=== PATIENT | female | born 1985 | race Caucasian/White ===

== ENCOUNTER → 2024-01-18 09:43 | Outpatient (REF) | payer OTHER, SELFPAY | LOC: WDC 09:43 | PROVIDERS: ATTENDING PHYSICIAN Nurse Practitioner Family | DX: N63.10 Unspecified lump in the right breast, unspecified quadrant (principal); N63.11 Unspecified lump in the right breast, upper outer quadrant | CPT/HCPCS: 76642; 77062; 77066 ==

== ENCOUNTER → 2024-08-05 14:37 | Outpatient (REF) | payer OTHER, SELFPAY | LOC: HWRAD 14:37 | PROVIDERS: ATTENDING PHYSICIAN Nurse Practitioner Family; FAMILY PHYSICIAN Family Medicine | DX: N39.498 Other specified urinary incontinence (principal) | CPT/HCPCS: 76857 ==

== ENCOUNTER 2025-02-11 17:43 | Inpatient (IN) | payer OTHER, SELFPAY ==
[2025-02-11] VITALS (11 sets, daily range): BP systolic 100–133; BP diastolic 67–81; BMI 24.9
[2025-02-11 09:54] LABS: % Basophils 0.5 % (0-2); % Eosinophils 2.1 % (0-6); % Immature Granulocytes 0.3 % (0-0.5); % Lymphocytes 25.8 % (20.5-51.1); % Monocytes 10.6 % (1.7-9.3); % Neutrophils 60.7 % (42.2-75.2); Absolute Eosinophils 0.1 10^3/uL (0-0.7); Absolute Lymphocytes 1.6 10^3/uL (1.2-3.4); Absolute Monocytes 0.7 10^3/uL (0.1-0.6); Absolute Neutrophils 3.8 10^3/uL (1.4-6.5); Hematocrit 41.9 % (37.0-47.0); Hemoglobin 14.2 g/dL (12.0-16.0); Mean Corp Hgb Conc. 33.9 g/dL (33.0-37.0); Mean Corpuscular Hgb 29.6 pg (27.0-31.0); Mean Corpuscular Volume 87.3 fL (81.0-99.0); Mean Platelet Volume 11.1 fL (7.4-10.4); Nucleated Red Blood Cells % 0 %; Platelet Count 252 10^3/uL (130-400); Red Cell Dist. Width 12.6 % (11.5-14.5); White Blood Cell Count 6.2 10^3/uL (4.8-10.8)
[2025-02-11 10:08] LABS: HCG, Serum Qualitative Screen Negative
[2025-02-11 10:31] LABS: ALT (SGPT) 18 U/L (0-35); AST (SGOT) 18 U/L (14-36); Albumin 3.7 g/dl (3.5-5.0); Alkaline Phosphatase 42 U/L (38-126); Blood Urea Nitrogen 11 mg/dl (7-17); Calcium 8.9 mg/dl (8.4-10.2); Carbon Dioxide 25 mmol/L (22-30); Chloride 108 mmol/L (98-107); Glucose 47 mg/dl (70-99); Lipase 204 U/L (23-300); Potassium 4.2 mmol/L (3.5-5.1); Sodium 141 mmol/L (135-145); Total Bilirubin 0.3 mg/dl (0.2-1.3); Total Protein 6.1 g/dl (6.3-8.2); eGFR > 60.00
--- NOTE | 2025-02-11 10:37 | EDRN ---
Pt just drank an OJ on way back to room for low glucose.
--- NOTE | 2025-02-11 10:49 | EDRN ---
Dr. Dasilva in room w/ pt at this time.
[2025-02-11 10:54] LABS: Glucose - Point of Care 81 mg/dl (70-99)
--- NOTE | 2025-02-11 11:03 | ED.GENMED ---
History of Present Illness
General
Chief Complaint: Abdominal Pain
Source: patient
Exam Limitations: none
Time Seen by Provider: 02/11/25 10:41
History of Present Illness
History of Present Illness:
40-year-old female started days ago with some diarrhea. Started becoming bloody diarrhea. Some cramps. No nausea or vomiting. No fever. History of same few years ago. No issues between then and now. No recent antibiotics. No unusual travel
history. No one else is ill at home
Past History
Past History
ED Past Medical History: Asthma (with exercise) and Other (Narcolepsy; ovarian cysts; endometriosis, tensionmigraine headaches)
ED Past Surgical History: Gynecological (Ovarian cyst x2 removed.) and Other (NOSE SURGERY; UTERINE SEPTUM REMOVED; TUBAL LIGATION DUE ON 01/27/16)
Patient has exhibited threatening behavior?: No
PSI?: No
Social History
Tobacco: Former smoker
Alcohol: None
Personal:
Living: with family
Employment: Employed
Family History
Family History: Other (No family history of subarachnoid hemorrhage nor cervical aneurysm)
Review of Systems
Review of Systems
All Other Systems: Not applicable
Constitutional: Denies fever or chills
: Reports no symptoms
Phy Exam
Physical Exam
Physical Exam:
GENERAL: Alert and oriented in no apparent distress
EYE: Orbits normal.
NECK: Supple, no significant adenopathy.
ENT: Pharynx without erythema
CARDIAC: Regular rate and rhythm without any obvious murmurs.
LUNGS: Clear breath sounds,normal
ABDOMEN: Soft, mild diffuse nonlocalizing tenderness. No rebound or guarding no mass or hernia
NEUROLOGICAL: Alert and oriented , grossly non-focal
SKIN: Warm and dry, no rash or lesion, no discoloration, skin intact.
MUSCULOSKELETAL: No edema,no deformity.Good color
PSYCH: Normal and appropriate interaction.
Course
Orders/Labs/Results
Orders:
Orders
02/11/25 09:33
Test Result ONCE
02/11/25 09:42
Complete Blood Count/With Diff Urgent
Comprehensive Metabolic Panel Urgent
HCG, Serum Qualitative Screen Urgent
Comment: Notify provider if positive test present
Lipase Urgent
02/11/25 11:01
CT Abd/pel W Iv And Oral Contr Urgent
Comment:
Reason For Exam: Abdominal pain diarrhea bloody stools
IV Insert/Care/Rem.- Treatment PRN
STOOL [C difficile Antigen & Toxins] Urgent
ADIA Source: Feces/Stool
Specimen Description:
Stool Culture Urgent
ADIA Source: Feces/Stool
Specimen Description:
0.9% Sodium Chloride 500 ml [Nss] 500 ml IV BOLUS
Iohexol [Omnipaque] See Protocol PO NOW STA
02/11/25 11:02
Ketorolac [Toradol] 15 mg IV NOW STA
02/11/25 12:56
Morphine Sulfate 4 mg IV NOW STA
Abnormal Lab Results
02/11/25
09:42
MPV 11.1 H fL
(7.4-10.4)
Absolute Monos (auto) 0.7 H 10^3/uL
(0.1-0.6)
Monocytes % 10.6 H %
(1.7-9.3)
Chloride 108 H mmol/L
(98-107)
Glucose 47 L* mg/dl
(70-99)
Total Protein 6.1 L g/dl
(6.3-8.2)
02/11/25 09:42
02/11/25 09:42
Vital Signs
Initial and Last Documented VS:
Initial Vital Signs
Temp Pulse Resp BP Pulse Ox
98.5 F 80 20 133/81 100
02/11/25 09:29 02/11/25 09:29 02/11/25 09:29 02/11/25 09:29 02/11/25 09:29
Last Documented Vital Signs
Temp Pulse Resp BP Pulse Ox
98.5 F 62 16 104/74 99
02/11/25 09:29 02/11/25 14:15 02/11/25 14:46 02/11/25 14:00 02/11/25 14:15
MDM/Problems Addressed
Differential Diagnosis Includes:
Symptoms most consistent with colitis. Similar episode 2 years ago. Workup in progress.
*Radiology
Radiology exam reviewed: radiology read reviewed (Possible mild colitis)
*Pulse Oximetry
Patient hypoxic: no
*Critical Care Note
Total Time (30-74mins, 75-104mins- exclusive of procedures): Not Applicable
Update Note
Update Note:
Patient uncomfortable requiring further pain management. Discussed inpatient versus outpatient management. She would feel more comfortable staying given her level of symptoms
ED Attending Note
-
Portions of this chart may have been created with voice recognition software.� Occasional wrong word or��sound alike� substitutions may have occurred due to the inherent limitations of voice recognition software.
Discharge Plan
Departure
Patient Disposition: Admit
Date of Disposition: 02/11/25
Time of Disposition: 15:35
Presentation/result/management discussed w/ accepting MD/DO: Hospitalist
Discharge Problem:
Colitis/intractable abdominal pain, Rectal bleeding, Hyperglycemia
Prescriptions:
No Action
dextroamphetamine-amphetamine 10 mg tablet
10 mg PO DAILY
norethindrone ac-eth estradiol [10/28 ()] 1-20 mg-mcg tablet
1 tab PO HS
dextroamphetamine-amphetamine 30 mg capsule,extended release 24hr
30 mg PO BID
fluoxetine 20 mg capsule
20 mg PO DAILY
bupropion HCl 300 mg tablet extended release 24 hr
300 mg PO DAILY
Rx Instructions:
TAKEN W/ 150MG = 450MG
bupropion HCl 150 mg tablet extended release 24 hr
150 mg PO DAILY
Rx Instructions:
TAKEN W/ 300MG = 450MG
rizatriptan 10 mg Tablet
0 mg PO .COMPLEX
Rx Instructions:
take 1 tab at onset of headache; if no relief may repeat 1 tab after at least 2 hrs; max = 3 tabs/24 hr
Zepbound 10 mg/0.5 mL Pen Injector
10 mg SC TU
Referrals:
Humza Bruner DO [Family Provider] -
Interventions
Interventions:
*Risk Screen - Suicide Last Done: 02/11/25 11:15
*General Assessment Last Done: 02/11/25 11:15
*Neglect/Abuse Screening Last Done: 02/11/25 11:15
*ED- Fall Risk Assessment Last Done: 02/11/25 11:15
*ED COVID-19 Vaccine History Last Done: 02/11/25 11:15
RL-Kjkwfy-[id number] Assessment Last Done: 02/11/25 11:15
Discharge Date and Time
Print Language: ANGOLAN
[2025-02-11] MEDS: OMNIPAQUE 50 ML PO (11:11)
[2025-02-11] MEDS: NSS 500 IV (11:18)
[2025-02-11] MEDS: TORADOL 15 MG IV (11:19)
[2025-02-11 11:53] LABS: Glucose - Point of Care 79 mg/dl (70-99)
--- NOTE | 2025-02-11 12:51 | EDRN ---
Sent Dr. Dasilva a TT about pain, no relief at this time.
--- NOTE | 2025-02-11 12:53 | EDRN ---
Pt is asking for more pain medication at this time.
--- NOTE | 2025-02-11 13:00 | EDRN ---
Pt attempted stool spec in BR at this time, No BM spec obtained.
[2025-02-11] MEDS: MORPHINE SULFATE 4 MG IV (13:03)
--- NOTE | 2025-02-11 17:32 | HPS.HSE ---
Addendum entered and electronically signed by Ashley Voss MD 02/11/25 18:19:
I personally performed a history and physical exam of the patient and discussed management with the resident. I reviewed the resident's note and agree with the documented findings and plan of care HPI/CC except for changes in my documentation
40-year-old female with abdominal pain abdominal pain. Stated that she had diarrhea since also has off-and-on diarrhea for the past few months. She is supposed to get a virtual colonoscopy as she could not get a colonoscopy completed in
2022 secondary to endometriosis . She could not get to it. She admits that she eats out or takes out. No one else at home was sick. No history of colon cancers in the family or any history of inflammatory bowel disease. No recent fevers.
Colonoscopy 07/11/2023-procedure was aborted due to restricted mobility of the colon and a tortuous colon. Tortuous sigmoid colon with tight angulation in sigmoid colon and restricted mobility of the colon secondary to severe endometriosis with
severe adhesions and multiple laparoscopies in the past.
CT abdomen pelvis-markedly limited evaluation due to lack of oral contrast, opacification of virtually entire large bowel and virtually completely empty descending and sigmoid colon. Although there are no gross findings to confirm discrete focal
wall thickening of the descending colon and sigmoid colon. Mild distal colitis cannot be excluded. No intestinal obstruction or free air. Mild hepatomegaly. Tiny hypodense right and left lobe hepatic lesions too small to characterize.
Pain is better now
Awake alert oriented
Cardiovascular system S1-S2 appreciated
Chest clear to auscultation
Abdomen mild discomfort with palpation no guarding or rigidity
Bowel sounds present
# Abdominal pain with loose stools
Infectious colitis versus inflammatory
No clear reasons for pain on CT
Check stool studies
Clear liquid diet
GI evaluation
# [id number]
# Narcolepsy-on dextroamphetamine/amphetamine
# Migraines-continue rizatriptan as needed
# Anxiety depression-Not on meds now
# Endometriosis with history of multiple surgeries
# Ex-smoker
# DVT prophylaxis-SCDs
# Full code
Part of this note was created using voice recognition system. Occasional wrong word or��sound alike� substitutions may have inadvertently occurred due to the inherent limitations of voice recognition software. If noted kindly bring it to my
attention for correction.
Original Note:
Family Physician
-
Family Physician: Humza Bruner
Chief Complaint
-
Abdominal Pain
History of Present Illness
The patient is a 40 years old female with PMH of exercise-induced asthma, narcolepsy, ADHD, endometriosis, migraine and tension type headache who presented to the ER complaining from lower abdominal pain which started about 5 days ago complicated
with diarrhea. Patient reports having diarrhea episodes 2-3 times daily since and her last bowel movement was yesterday which was some formed comparing to her previous liquid bowel movements. Due to her worsening pain, she presented to ER
and was obtained an abdominal CT which could not exclude a possible mild distal colitis. She was noted with normal temperature, normal blood pressure levels, heart rate 62, respiration rate 16 and saturating 99 on room air. Her lab results were not
remarkable except low glucose level to 47 and other lab results showed WBC 6.2, hemoglobin 14.2, sodium 141, potassium 4.2, creatinine 0.9, normal LFTs and negative b- hCG. Patient denies any recent traveling, diet change, antibiotic use and sick
contacts. The patient states having a similar episode about 2-3 years ago and recommended having a colonoscopy following her discharge. Her colonoscopy findings was limited due to restricted mobility of the colon and she was recommended to have a
virtual colonoscopy. She did not have virtual colonoscopy or follow-up with GI since then.
Medical History
Past Medical History
Past Medical History: Reports Asthma (Exercise-induced) and Other
Additional Past Medical History:
Narcolepsy, ADHD, Endometriosis, Migraine, Tension type headache
Past Surgical History: Reports Other (Gynecological (uterine septum removed, ovarian cyst removed 2 times, tubal ligation, ), nose surgery)
Social History
Tobacco: Former Smoker (Quit smoking in 2009)
Alcohol: Former (About 5 days/weekly 1 glass of alcoholic beverage)
Drug: None
Personal:
Living: With Family
Employment: Employed
Family History
Family History: Not pertinent (No history of IBS or colon cancer in the family/no other chronic diseases)
Allergies / Home Medications
Allergies reflects when Allergies were last updated in [facility].
Allergies
Allergy/AdvReac Type Severity Reaction Status Date / Time
No Known Allergies Allergy Verified 02/11/25 09:32
Home Medications
bupropion HCl 150 mg 24 hr tablet, extended release 150 mg PO DAILY Mental Health/Anxiety 01/19/23
bupropion HCl 300 mg 24 hr tablet, extended release 300 mg PO DAILY Mental Health/Anxiety 01/19/23
dextroamphetamine-amphetamine 10 mg tablet 10 mg PO DAILY narcolepsy 01/19/23
dextroamphetamine-amphetamine ER 30 mg 24hr capsule,extend release 30 mg PO BID narcolepsy 01/19/23
fluoxetine 20 mg capsule 20 mg PO DAILY Mental Health/Anxiety 01/19/23
norethindrone acetate 1 mg-ethinyl estradiol 20 mcg tablet (Junel) 1 tab PO HS Hormonal agent 01/19/23
rizatriptan 10 mg tablet 0 mg PO .COMPLEX 02/11/25
tirzepatide (weight loss) 10 mg/0.5 mL subcutaneous pen injector (Zepbound) 10 mg SC TU 02/11/25
Home Medications with original date entered in [facility]
Allergy/Medication List:
No known allergies
Review of Systems
-
History Source: Patient
EENT: Reports No Symptoms
Respiratory: Reports No Symptoms
Cardiac: Reports No Symptoms
Abdomen/GI: Reports Abdominal Pain
: Reports No Symptoms
Musculoskeletal: Reports No Symptoms
Skin: Reports No Symptoms
Neurological: Reports No Symptoms
Endocrine: Reports No Symptoms
Physical Exam
Vital Signs
Vital Signs
Temp Pulse Resp BP Pulse Ox
98.5 F 62 16 104/74 99
02/11/25 09:29 02/11/25 14:15 02/11/25 14:46 02/11/25 14:00 02/11/25 14:15
Physical Exam
General: Well Developed, Well Nourished and Poor Appetite
HEENT: NormoCephalic, Anicteric and Moist mucous membranes
Respiratory: Clear
Cardiac: S1/S2 and Regular Rhythm
GI: Soft, Non Distended and Tender (Mild tenderness on lower abdominal area)
Musculoskeletal: No Clubbing, No Cyanosis and No Edema
Skin: Warm
Neuro: Awake, Alert, Oriented and AO x 3
Psych: Calm
Laboratory Results
-
02/11/25 09:42
02/11/25 09:42
Laboratory Results
Total Bilirubin 0.3 mg/dl (0.2-1.3) 02/11/25 09:42
AST 18 U/L (14-36) 02/11/25 09:42
ALT 18 U/L (0-35) 02/11/25 09:42
Alkaline Phosphatase 42 U/L (38-126) 02/11/25 09:42
Lipase 204 U/L (23-300) 02/11/25 09:42
Impression/Plan
-
IMPRESSION: 40 years old female presented to the ER with lower abdominal pain and was obtained a abdominal pelvis CT which noted a possible mild distal colitis. She was noted with normal temperature, normal blood pressure levels, heart rate 62,
respiration rate 16 and saturating 99 on room air. Her lab results were not remarkable except low glucose level to 47 and other lab results showed WBC 6.2, hemoglobin 14.2, sodium 141, potassium 4.2, creatinine 0.9, normal LFTs and negative b-
hCG. Patient denies any recent traveling, diet change, antibiotic use and sick contacts. The patient states having a similar episode about 2-3 years ago and recommended having a colonoscopy following her discharge. Her colonoscopy findings was
limited due to restricted mobility of the colon and she was recommended to have a virtual colonoscopy.
PLAN:
# Acute colitis possibly secondary to inflammatory versus infectious
-Abdominal/pelvis CT:Although there are no gross findings to confirm discrete focal wall thickening of the descending and sigmoid colon, mild distal colitis cannot be entirely excluded.
-History of a similar episode of colitis 2 years ago-had colonoscopy which was not remarkable
-GI consulted
-Stool studies were ordered
-Started on clear liquid diet
-The patient was not started on empiric antibiotics-No fever /No leukocytosis-follow temperature curve and WBC
-Started on full liquids diet with a plan to advance tomorrow if she can tolerate without abdominal pain
# Nausea
- Zofran as needed
# Pain management
- Tramadol 50 mg as needed
- Patient reports Toradol did not help her pain
# Hypoglycemia possibly medication induced
-Resolved after given some juice at the ER
-Low appetite to abdominal pain
-Follow-up glucose level at bedside(ordered bedside glucose monitoring Q6H)
# Weight loss
- On Zepbound to loose weight/weekly
-Last injection was 02/10/25 per patient report
# Anxiety/depression
-Patient reports she has stopped taking her bupropion and fluoxetine about 1 month ago
- Hold Bupropion 300 mg and 150 mg and fluoxetine
#Narcolepsy
-Continue Adderall
# Migraine/tension type headache
- Continue rizatriptan as needed
# Asthma
- Exercise-induced
- Stable
# DVT prophylaxis
- Lovenox
# CODE STATUS
- Full code
[2025-02-11] MEDS: ULTRAM 50 MG PO ×2 (17:48→23:42)
[2025-02-11] MEDS: TORADOL 10 MG IV (20:55)
[2025-02-11] MEDS: ULTRAM 25 MG PO (22:24)
[2025-02-11 23:47] LABS: Glucose - Point of Care 82 mg/dl (70-99)
[2025-02-12] MEDS: TORADOL 15 MG IV (03:52)
[2025-02-12] MEDS: ULTRAM 50 MG PO ×3 (06:23→20:18)
[2025-02-12 06:28] VITALS: BP 119/85
[2025-02-12 06:29] VITALS: BP 119/85
[2025-02-12 06:41] LABS: Hematocrit 43.9 % (37.0-47.0); Hemoglobin 14.7 g/dL (12.0-16.0); Mean Corp Hgb Conc. 33.5 g/dL (33.0-37.0); Mean Corpuscular Hgb 28.7 pg (27.0-31.0); Mean Corpuscular Volume 85.7 fL (81.0-99.0); Mean Platelet Volume 10.8 fL (7.4-10.4); Platelet Count 220 10^3/uL (130-400); Red Blood Cell Count 5.12 10^6/uL (4.20-5.40); Red Cell Dist. Width 12.5 % (11.5-14.5)
[2025-02-12 07:01] LABS: ALT (SGPT) 19 U/L (0-35); AST (SGOT) 20 U/L (14-36); Albumin 3.7 g/dl (3.5-5.0); Alkaline Phosphatase 43 U/L (38-126); Blood Urea Nitrogen 7 mg/dl (7-17); Calcium 9.1 mg/dl (8.4-10.2); Carbon Dioxide 27 mmol/L (22-30); Chloride 104 mmol/L (98-107); Estimated Creatinine Clearance 76 ml/min; Glucose 92 mg/dl (70-99); Potassium 4.1 mmol/L (3.5-5.1); Sodium 138 mmol/L (135-145); Total Bilirubin 0.6 mg/dl (0.2-1.3); Total Protein 6.2 g/dl (6.3-8.2); eGFR > 60.00
--- NOTE | 2025-02-12 07:06 | W.PN.HOSP.TC ---
Addendum entered and electronically signed by Ashley Voss MD 02/12/25 15:30:
I saw and evaluated the patient. I reviewed the resident�s note and agree with findings and plan as documented in the resident�s note.
CVS: S1-S2 normal
Chest: CTA B/L
Abdomen: Soft, NT / Bowel sounds present
Extremities: No edema, normal pulses
No abd pain now
No BM since admission
GI eval appreciated
Full Liquids and watch
Original Note:
Today's Communication/Plan
-
- Her diet advanced to full liquids with a plan to advance slowly as the diet if she can tolerate
-Stool studies pending to be obtained-follow
Assessment / Plan
Assessment / Plan
Acute colitis possibly secondary to infectious versus inflammatory
-Abdominal/pelvis CT:Although there are no gross findings to confirm discrete focal wall thickening of the descending and sigmoid colon, mild distal colitis cannot be entirely excluded.
-History of a similar episode of colitis 2 years ago-had colonoscopy which was not remarkable
-GI on board
-Stool studies/ calprotectin pending to be obtained
-Advanced to full liquid diet by GI
-The patient was not started on empiric antibiotics-No fever /No leukocytosis-follow temperature curve and WBC
# Nausea
- Zofran as needed
# Pain management
- Tramadol 50 mg as needed
- Patient reports Toradol did not help her pain
# Hypoglycemia possibly medication induced
-Resolved after given some juice at the ER
-Low appetite to abdominal pain
-Follow-up glucose level at bedside(ordered bedside glucose monitoring Q6H)
# Weight loss
- On Zepbound to loose weight/weekly
-Last injection was 02/10/25 per patient report
# Anxiety/depression
-Patient reports she has stopped taking her bupropion and fluoxetine about 1 month ago
- Hold Bupropion 300 mg and 150 mg and fluoxetine
#Narcolepsy
-Continue Adderall
# Migraine/tension type headache
- Continue rizatriptan as needed
# Asthma
- Exercise-induced
- Stable
# Endometriosis with history of multiple surgeries
# DVT prophylaxis
- Lovenox
# CODE STATUS
- Full code
Anticipated Discharge: 24 - 48 hours
Subjective/Interval History
-
Date of Service: February 12, 2025
Patient reports her pain mostly subsided and feeling better. She rated her abdominal pain 3/10. Reports episode of diarrhea no bowel movement since admission.
Objective Data
-
Labs:
Laboratory Results
02/12/25
06:28
WBC 5.0
Hgb 14.7
Hct 43.9
Plt Count 220
Sodium 138
Potassium 4.1
Chloride 104
Carbon Dioxide 27
BUN 7
Creatinine 1.0
Glucose 92
Calcium 9.1
Total Bilirubin 0.6
AST 20
ALT 19
Alkaline Phosphatase 43
Vital Signs:
Vital Signs
Temp Pulse Resp BP Pulse Ox
98.1 F 78 16 119/85 98
02/11/25 23:05 02/12/25 06:29 02/11/25 23:05 02/12/25 06:29 02/12/25 06:29
Review of Systems
-
History Source: Patient
EENT: Reports No Symptoms Reported
Respiratory: Reports No Symptoms
Cardiac: Reports No Symptoms
Abdomen/GI: Reports Abdominal Pain
Genitourinary: Reports No Symptoms
Musculoskeletal: Reports No Symptoms
Skin: Reports No Symptoms
Neuro: Reports No Symptoms
Physical Exam
-
General: Well Developed and Well Nourished
HEENT: Normocephalic and Atraumatic
Respiratory: Clear to Auscultation
Cardiac: Regular Rhythm and S1/S2
GI: Soft, Nontender (Very mild tenderness on lower abdominal area) and Nondistended
Musculoskeletal: No Clubbing, No Cyanosis and No Edema
Skin: Warm
Neuro: Awake, Alert, Oriented and AO x 3
Psych: Calm
[2025-02-12] MEDS: ADDERALL PO (10:35)
--- NOTE | 2025-02-12 10:44 | CON.GI ---
Addendum entered and electronically signed by José Manuel Bar MD 02/12/25 13:03:
I saw and examined the patient.
The medical psychotherapist note was reviewed and I agree with the note.
--abdominal pain/ diarrhea - initially watery then noted blood . No leukocytosis. Hb stable. CT abdomen/pelvis with contrast-markedly limited evaluation (no contrast opacification of entire large bowel) . No gross findings
-- hx of endometriosis
-- Incomplete colonoscopy 07/2023 with -secondary to restricted mobility of the colon/tortuous sigmoid colon with tight angulation. Advised to do virtual CT but she claims she couldn't do it
plan
possible differential - infectious vs inflammatory versus etc. prior history of infectious colitis
full liquid diet
check stool for infections / calprotectin
monitor H/H
Original Note:
Consultation
-
Date/Time Consultation Requested: 02/12/25
Date/Time Consultation Performed: 02/12/25
Requesting Provider: DR José Manuel Bar
Performing Provider: Dr Janel Mckeon
Reason for Consultation: abdomen pain
Medical History
Chief Complaint / HPI
Chief Complaint: Abdominal pain
History of Present Illness:
40-year-old female with history of endometriosis, narcolepsy presented with abdominal cramps and diarrhea. Patient states that on 02/06 she experienced abdominal cramps and had 2 episodes of diarrhea, no blood noted. She continued to have diarrhea
(2 per day) for the next 3 days and on 02/10/25, she noted blood in her stool with worsening abdominal pain. She reported last night, the pain was severe enough to wake her up from sleep. She denies the pain being similar to endometriosis. She
has been taking OCPs consistently and has not experienced 'endometriosis type of pain in a long time'. She denies fever, chills, nausea, and vomiting. She has a history of narcolepsy for which she takes stimulants. She denies recent travels. She
admits to eating from
Her last colonoscopy was on 07/11/2023, unfortunately, it was aborted due to restricted mobility of the colon and tortuous colon. Tortuous sigmoid colon with tight angulation in sigmoid colon and restricted mobility of the colon secondary to severe
endometriosis with severe adhesions and multiple laparoscopies in the past. Patient was scheduled for virtual colonoscopy however she was not able to get to the appointment. She had past 2 similar episodes in past. No history of colon cancer/IBD.
No FM of colon cancer.
CT abd/pelvis reveals markedly limited evaluation of intestinal tract due to numerous factors including marked paucity of intra-abdominal/pelvic fat, lack of oral contrast opacification of virtually entire large bowel and virtually completely empty
descending and sigmoid colon. Although there are no gross findings to confirm discrete focal wall thickening of the descending and sigmoid colon, mild distal colitis cannot be entirely excluded. No intestinal obstruction or free air.
Past Medical History
Past Medical History: Other (Narcolepsy, ADHD, Endometriosis, Migraine, Tension type headache )
Past Surgical History: Gynecological (uterine septum removed, ovarian cyst removed 2 times, tubal ligation, )
Social History
Tobacco: Former Smoker (smoked for 6 years, quit in 2009)
Alcohol: Daily (one glass of gin with tonic daily )
Drug: None
Personal:
Living: With Family
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
Family History
Family History: Reviewed & Not Pertinent
Allergies / Home Medications
Allergy/AdvReac Type Severity Reaction Status Date / Time
No Known Allergies Allergy Verified 02/11/25 09:32
�Medication �Instructions �Recorded
bupropion HCl 150 mg 24 hr tablet, 150 mg PO DAILY Mental 01/19/23
extended release Health/Anxiety
bupropion HCl 300 mg 24 hr tablet, 300 mg PO DAILY Mental 01/19/23
extended release Health/Anxiety
dextroamphetamine-amphetamine 10 10 mg PO DAILY narcolepsy 01/19/23
mg tablet
dextroamphetamine-amphetamine ER 30 mg PO BID narcolepsy 01/19/23
30 mg 24hr capsule,extend release
fluoxetine 20 mg capsule 20 mg PO DAILY Mental 01/19/23
Health/Anxiety
norethindrone acetate 1 mg-ethinyl 1 tab PO HS Hormonal agent 01/19/23
estradiol 20 mcg tablet (Junel)
rizatriptan 10 mg tablet 0 mg PO .COMPLEX 02/11/25
tirzepatide (weight loss) 10 10 mg SC TU 02/11/25
mg/0.5 mL subcutaneous pen
injector (Zepbound)
Review of Systems
-
All other systems: A 12 pt ROS was Negative except as stated above in HPI
Vital Signs
Temp Pulse Resp BP Pulse Ox
98.1 F 78 16 119/85 98
02/11/25 23:05 02/12/25 06:29 02/11/25 23:05 02/12/25 06:29 02/12/25 06:29
Physical Exam
Exam
General: No Apparent Distress and Comfortable
HEENT: Normocephalic and Anicteric
Respiratory: Clear
Cardiac: S1/S2 and Regular Rhythm
GI: Soft, Non Tender, Non Distended and Normal Bowel Sounds
Neuro: AO x 3
Psych: Calm
Results
WBC 5.0 10^3/uL (4.8-10.8) 02/12/25 06:28
Hgb 14.7 g/dL (12.0-16.0) 02/12/25 06:28
Hct 43.9 % (37.0-47.0) 02/12/25 06:28
MCV 85.7 fL (81.0-99.0) 02/12/25 06:28
Plt Count 220 10^3/uL (130-400) 02/12/25 06:28
Absolute Neuts (auto) 3.8 10^3/uL (1.4-6.5) 02/11/25 09:42
Sodium 138 mmol/L (135-145) 02/12/25 06:28
Potassium 4.1 mmol/L (3.5-5.1) 02/12/25 06:
Chloride 104 mmol/L (98-107) 02/12/25 06:28
Carbon Dioxide 27 mmol/L (22-30) 02/12/25 06:28
BUN 7 mg/dl (7-17) 02/12/25 06:
Creatinine 1.0 mg/dL (0.6-1.0) 02/12/25 06:
Calcium 9.1 mg/dl (8.4-10.2) 02/12/25 06:
Total Bilirubin 0.6 mg/dl (0.2-1.3) 02/12/25 06:
AST 20 U/L (14-36) 02/12/25 06:28
ALT 19 U/L (0-35) 02/12/25 06:28
Alkaline Phosphatase 43 U/L (38-126) 02/12/25 06:
Lipase 204 U/L (23-300) 02/11/25 09:42
Diagnostic Image Results:
Prior GI Procedures:
EGD:
Colonoscopy: 07/11/23
The procedure was aborted due to restricted mobility of the colon and a tortuous colon.
Tortuous sigmoid colon with tight angulation in sigmoid colon and restricted mobility of the colon( likley due to h/o severe endometriosis with severadhesions and multiple laparascopies in past ) .
No specimens collected.
Assessment / Plan
-
Assessment and plan
Infectious versus inflammatory colitis
Afebrile, no leukocytosis
Abdominal pain has improved
Patient is comfortable, abd is soft, nontender
CT scan markedly limited evaluation of intestinal track, lack of oral contrast opacification of likely entire large bowel and empty descending and sigmoid
Check stool cultures for infection
Full liquid diet
Potential virtual colonoscopy--can follow-up with Dr. Lopez outpatient
GI will continue to follow.
-
-
Thank you for consultation and allowing me to participate in the patient's care. Please call the network operations project manager GI physician during the after hours with any questions or concerns.
--- NOTE | 2025-02-12 14:44 | CM ---
Met with patient at bedside in the ED; maintained isolation precautions
Pharmacy verified: [facility] @ [address], [place]
Patient lives w/ ; multilevel home; no steps to enter; spiral staircase to upper level w/ railing; bedroom and bath on 1st floor; bath has stall shower
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
NO DME
No SNF or Home Health utilization history
will transport home
Plan: discharge to home when medically stable; no needs anticipated
[2025-02-12 15:03] VITALS: BP 111/79
[2025-02-12 16:23] VITALS: BP 114/77
[2025-02-12 16:37] VITALS: BP 114/77
--- NOTE | 2025-02-12 17:12 | PTCARENOTE ---
Received pt from ED, AAOx3, pt ambulated from stretcher to bed with no assistance or assistive devices, VSS, pt resting comfortably in bed with call fernandez at bedside, no new orders at this time.
[2025-02-12 17:13] VITALS: BMI 23.6
[2025-02-12 17:41] LABS: Glucose - Point of Care 75 mg/dl (70-99)
[2025-02-12 23:35] VITALS: BP 109/67
[2025-02-13 00:14] LABS: Glucose - Point of Care 83 mg/dl (70-99)
[2025-02-13 05:55] LABS: Glucose - Point of Care 94 mg/dl (70-99)
[2025-02-13 07:30] LABS: Hematocrit 41.7 % (37.0-47.0); Hemoglobin 14.1 g/dL (12.0-16.0); Mean Corp Hgb Conc. 33.8 g/dL (33.0-37.0); Mean Corpuscular Hgb 28.9 pg (27.0-31.0); Mean Corpuscular Volume 85.5 fL (81.0-99.0); Mean Platelet Volume 10.8 fL (7.4-10.4); Platelet Count 225 10^3/uL (130-400); Red Blood Cell Count 4.88 10^6/uL (4.20-5.40); Red Cell Dist. Width 12.3 % (11.5-14.5); White Blood Cell Count 4.7 10^3/uL (4.8-10.8)
[2025-02-13] MEDS: ADDERALL 10 MG PO (07:33)
[2025-02-13] MEDS: ULTRAM 50 MG PO ×2 (07:35→13:55)
[2025-02-13 07:58] LABS: ALT (SGPT) 17 U/L (0-35); AST (SGOT) 17 U/L (14-36); Albumin 3.5 g/dl (3.5-5.0); Alkaline Phosphatase 45 U/L (38-126); Blood Urea Nitrogen 7 mg/dl (7-17); Calcium 8.8 mg/dl (8.4-10.2); Carbon Dioxide 30 mmol/L (22-30); Chloride 101 mmol/L (98-107); Estimated Creatinine Clearance 76 ml/min; Glucose 82 mg/dl (70-99); Potassium 4.3 mmol/L (3.5-5.1); Sodium 135 mmol/L (135-145); Total Bilirubin 0.5 mg/dl (0.2-1.3); Total Protein 5.9 g/dl (6.3-8.2); eGFR > 60.00
[2025-02-13 08:00] VITALS: BP 120/78
--- NOTE | 2025-02-13 09:01 | W.PN.HOSP.TC ---
Addendum entered and electronically signed by Ashley Voss MD 02/13/25 15:05:
Feeling much better today. No more diarrhea since admission or any blood in the stools.
Tolerating diet
She requested a few tablets of tramadol in case of pain comes back
She is aware that she needs to follow-up with GI for colonoscopy
Abdomen exam benign soft
Discussed with GI today
Okay for discharge
Original Note:
Today's Communication/Plan
-
-Advanced diet t low residue
-Discharge can be planned if she does not develop more abdominal discomfort/pain with her advanced diet
Assessment / Plan
Assessment / Plan
#Acute colitis possibly secondary to infectious versus inflammatory
-Abdominal/pelvis CT:Although there are no gross findings to confirm discrete focal wall thickening of the descending and sigmoid colon, mild distal colitis cannot be entirely excluded.
-History of a similar episode of colitis 2 years ago-had colonoscopy which was not remarkable
-GI on board
-Stool studies/ calprotectin pending to be obtained
-Advanced to full liquid diet by GI on 02/12-tolerated well
-Her diet advanced to low residue diet this a.m.
-The patient was not started on empiric antibiotics-No fever /No leukocytosis-follow temperature curve and WBC
# Nausea
- Zofran as needed
# Pain management
- Tramadol 50 mg as needed
- Patient reports Toradol did not help her pain
# Hypoglycemia possibly medication induced
-Resolved after given some juice at the ER
-Low appetite to abdominal pain
-Follow-up levels normal
# Weight loss
- On Zepbound to loose weight/weekly
-Last injection was 02/10/25 per patient report
# Anxiety/depression
-Patient reports she has stopped taking her bupropion and fluoxetine about 1 month ago
- Hold Bupropion 300 mg and 150 mg and fluoxetine
#Narcolepsy
-Continue Adderall
# Migraine/tension type headache
- Continue rizatriptan as needed
# Asthma
- Exercise-induced
- Stable
# Endometriosis with history of multiple surgeries
# DVT prophylaxis
- Lovenox
# CODE STATUS
- Full code
Anticipated Discharge: 24 - 48 hours
Subjective/Interval History
-
Date of Service: February 13, 2025
Patient reports her abdominal pain improved and she has some discomfort on lower area.
Objective Data
-
Labs:
Laboratory Results
02/13/25
06:27
WBC 4.7 L
Hgb 14.1
Hct 41.7
Plt Count 225
Sodium 135
Potassium 4.3
Chloride 101
Carbon Dioxide 30
BUN 7
Creatinine 1.0
Glucose 82
Calcium 8.8
Total Bilirubin 0.5
AST 17
ALT 17
Alkaline Phosphatase 45
Vital Signs:
Vital Signs
Temp Pulse Resp BP Pulse Ox
98.1 F 71 16 120/78 99
02/13/25 08:00 02/13/25 08:00 02/13/25 08:00 02/13/25 08:00 02/13/25 08:00
Review of Systems
-
History Source: Patient
Constitutional: Reports No Symptoms
EENT: Reports No Symptoms Reported
Respiratory: Reports No Symptoms
Cardiac: Reports No Symptoms
Abdomen/GI: Reports Other (See HPI)
Genitourinary: Reports No Symptoms
Musculoskeletal: Reports No Symptoms
Skin: Reports No Symptoms
Neuro: Reports No Symptoms
Physical Exam
-
General: Well Developed, Well Nourished, No Apparent Distress, Comfortable and Conversant
HEENT: Normocephalic and Atraumatic
Respiratory: Clear to Auscultation
Cardiac: Regular Rhythm and S1/S2
GI: Soft, Nontender and Nondistended
Musculoskeletal: No Clubbing, No Cyanosis and No Edema
Skin: Warm
Neuro: Awake, Alert, Oriented, AO x 3 and Nonfocal/Grossly Intact
Psych: Calm
--- NOTE | 2025-02-13 09:53 | W.DCSUMMARY ---
Discharge Summary
Discharge Data
Date of Admission: 02/11/25
Date of Discharge: 02/13/25
-
Pending Results: No
Additional Pending Results:
Patient's stool studies were not able to obtained because the patient did not have any bowel movements. She was recommended to have follow-up with GI team.
Hospital Course
Disposition : Home
Primary care physician : Humza Bruner DO
Principal Discharge diagnosis : Acute colitis, hypoglycemia
Chronic Discharge diagnosis : Anxiety depression, Narcolepsy, Migraine/tension type headache, [id number], History of endometriosis
Hospital Course :
#Acute Colitis:She has a history of a similar episode of colitis about 2 years ago. The patient presented to ER on complaining severe lower abdominal pain for which she was obtained an abdominal CT which was suspicious for mild distal
colitis. Her lab results was unremarkable, no leucocytosis nor fever or chills. The patient was admitted and started on IV fluids and given pain medication. She was seen by GI and recommended a virtual colonoscopy at outpatient setting. She was
started on clear liquid diet and her diet advanced as tolerated. Her abdominal pain improved and she was able to tolerate low residue diet.
#Hypoglycemia: Resolved after given juice at admission. Her follow up glucose levels were in normal limits.
Important imaging findings :
Abdominal/Pelvis CT 02/11/25
FINDINGS:
Lower Chest: Lung bases are predominantly clear. No pleural effusion.
Abdomen:
Liver: Mildly enlarged at 18 cm, homogeneous in appearance. Tiny hypodense left lobe hepatic lesion, image 18 series 201 and right lobe lesion image 31 series 201, too small to characterize
Bile Ducts: Within normal limits.
Gallbladder: Within normal limits.
Pancreas: Within normal limits.
Spleen: Within normal limits.
Adrenals: Within normal limits.
Kidneys/Ureters: Symmetric excretion.
Bowel: Markedly limited in evaluation as a result of marked paucity of intra-abdominal fat and oral contrast opacification only of stomach and portions of nondilated small bowel, only minimal contrast seen admixed seen with stool in the cecum. In
addition, the descending colon, sigmoid and rectum are virtually completely empty/decompressed. There is no intestinal obstruction.
Peritoneum: No ascites or free air.
Bladder: No focal intrinsic abnormality.
Vessels: Abdominal aorta within the limits of normal in caliber.
Retroperitoneum: No retroperitoneal lymphadenopathy.
Bones: No suspicious lesions.
IMPRESSION:
Markedly limited evaluation of intestinal tract due to numerous factors including marked paucity of intra-abdominal/pelvic fat, lack of oral contrast opacification of virtually entire large bowel and virtually completely empty descending and sigmoid
colon. Although there are no gross findings to confirm discrete focal wall thickening of the descending and sigmoid colon, mild distal colitis cannot be entirely excluded. No intestinal obstruction or free air.
Mild hepatomegaly.
Tiny hypodense right and left lobe hepatic lesions, too small to characterize.
Electronically signed by Ivan Santamaria MD, 02/11/2025 3:09 PM
Procedure findings :
Discharge Plan
-
Patient Disposition: Home (Routine Discharge)
Discharge Diagnosis/Procedures: Acute Colitis
Hypoglycemia
Anxiety depression
Narcolepsy
Migraine/tension type headache
[id number]
History of endometriosis
Diet: As tolerated
Activity: No restrictions and As tolerated
Driving Restrictions: As prior to admission
Activity Restrictions/Additional Instructions:
follow up with GI
Tramadol can be constipating. Take only if absolutely needed
Referrals:
Humza Bruner DO [Family Provider] - in less than 1 week (Follow with your PCP to have Stool studies and calprotectin )
Sita Johnston MD [Active] -
Prescriptions:
New
tramadol 50 mg tablet
50 mg PO Q8H PRN (Reason: pain) Qty: 10 0RF
polyethylene glycol 3350 [Miralax] 17 gram powder in packet
17 g PO DAILY Qty: 30 0RF
Continued
dextroamphetamine-amphetamine 10 mg tablet
10 mg PO DAILY
norethindrone ac-eth estradiol [10/28 ()] 1-20 mg-mcg tablet
1 tab PO HS
dextroamphetamine-amphetamine 30 mg capsule,extended release 24hr
30 mg PO BID
rizatriptan 10 mg Tablet
0 mg PO .COMPLEX
Rx Instructions:
take 1 tab at onset of headache; if no relief may repeat 1 tab after at least 2 hrs; max = 3 tabs/24 hr
Zepbound 10 mg/0.5 mL Pen Injector
10 mg SC TU
Discontinued
fluoxetine 20 mg capsule
20 mg PO DAILY
bupropion HCl 300 mg tablet extended release 24 hr
300 mg PO DAILY
Rx Instructions:
TAKEN W/ 150MG = 450MG
bupropion HCl 150 mg tablet extended release 24 hr
150 mg PO DAILY
Rx Instructions:
TAKEN W/ 300MG = 450MG
Discharge Orders:
Discharge Patient (As Directed); Ordered 02/13/25
Ordered By: Ashley Voss
Discharge Date and Time
Print Language: SLOVENIAN
--- NOTE | 2025-02-13 11:08 | W.PN.GI.CBS2 ---
Addendum entered and electronically signed by José Manuel Bar MD 02/13/25 11:38:
I saw and examined the patient.
The ophthalmic medical technologist note was reviewed and I agree with the note.
Denies any abdominal pain. Tolerating liquid diet. Denies any diarrhea. Stool samples not collected
--abdominal pain/ diarrhea - initially watery then noted blood . No leukocytosis. Hb stable. CT abdomen/pelvis with contrast-markedly limited evaluation (no contrast opacification of entire large bowel) . No gross findings
-- hx of endometriosis
-- Incomplete colonoscopy 07/2023 with -secondary to restricted mobility of the colon/tortuous sigmoid colon with tight angulation. Advised to do virtual CT but she claims she couldn't do it
plan
possible differential - infectious vs inflammatory versus food poisoning etc. prior history of infectious colitis. currently symptoms resolved ( no stool samples collected )
Advance diet to low-fat low residual diet
Recommend follow-up with Dr. Johnston as outpatient. message sent to office
will s/o.
Original Note:
Today's Communication / Plan
-
advance diet
Assessment / Plan
-
Assessment and plan
Infectious versus inflammatory colitis
Afebrile, no leukocytosis
Abdominal pain has improved
Patient is comfortable, abd is soft, nontender
CT scan markedly limited evaluation of intestinal track, lack of oral contrast opacification of likely entire large bowel and empty descending and sigmoid
Check stool cultures for infection
advance diet-- agree with low residue
Potential virtual colonoscopy--can follow-up with Dr. Lopez outpatient
GI will continue to follow.
Subjective
Subjective
Date of Service: February 13, 2025
Objective
Data Reviewed
Laboratory Data:
Laboratory Results
02/13/25 06:27
02/13/25 06:27
Laboratory Results
Total Bilirubin 0.5 mg/dl (0.2-1.3) 02/13/25 06:27
AST 17 U/L (14-36) 02/13/25 06:27
ALT 17 U/L (0-35) 02/13/25 06:27
Alkaline Phosphatase 45 U/L (38-126) 02/13/25 06:27
Lipase 204 U/L (23-300) 02/11/25 09:42
Vital Signs and I&O:
Vital Signs
Temp Pulse Resp BP Pulse Ox
98.1 F 71 16 120/78 99
02/13/25 08:00 02/13/25 08:00 02/13/25 08:00 02/13/25 08:00 02/13/25 10:48
Physical Exam
Physical Exam
HEENT: Anicteric
Cardiology: Normal Sinus Rhythm, S1 and S2
Pulmonary: Clear
GI: Soft, Distended and Non Distended
[2025-02-13 12:00] LABS: Glucose - Point of Care 98 mg/dl (70-99)
--- NOTE | 2025-02-13 15:55 | CM ---
Chart reviewed and patient's plan is to home with spouse.
Plan; Home with spouse.
[2025-02-13 16:00] VITALS: BP 110/73
== END 2025-02-13 16:28 | disposition home or self-care (01) | DRG 392 ==
LOC: 2 NORTH 17:43
PROVIDERS: Student in an Organized Health Care Education/Training Program; ADMITTING PHYSICIAN Hospitalist; CONSULT PHYSICIAN Internal Medicine Gastroenterology; EMERGENCY PHYSICIAN Emergency Medicine; FAMILY PHYSICIAN Family Medicine
DX: K52.9 Noninfective gastroenteritis and colitis, unspecified (principal); E16.2 Hypoglycemia, unspecified; F32.A Depression, unspecified; G47.419 Narcolepsy without cataplexy; G43.909 Migraine, unspecified, not intractable, without status migrainosus; J45.909 Unspecified asthma, uncomplicated; F41.9 Anxiety disorder, unspecified; Z87.891 Personal history of nicotine dependence; F90.9 Attention-deficit hyperactivity disorder, unspecified type; G44.209 Tension-type headache, unspecified, not intractable
CPT/HCPCS: 74177; 80053; 82962; 83690; 84703; 85025; 85027; Q9967